=== PATIENT | female | born 2005 | race Two or more races ===

== ENCOUNTER 2023-08-31 08:57 | Outpatient (REF) | payer OTHER, SELFPAY ==
[2023-08-31 10:39] LABS: Alanine Aminotransferase 12 U/L (0-31); Albumin Level 4.7 g/dL (3.5-5.0); Alkaline Phosphatase 78 U/L (39-117); Anion Gap 14 (12-20); Aspartate Amino Transferase 14 U/L (5-31); Bilirubin Total 0.4 mg/dL (0.0-1.0); Blood Urea Nitrogen 7 mg/dL (9-16); Calcium 9.5 mg/dL (8.4-10.2); Carbon Dioxide 21 mmol/L (22-29); Chloride 108 mmol/L (96-108); Estimated Glomerular Filt Rate > 60; Glucose Random 103 mg/dL (60-115); Potassium 3.7 mmol/L (3.3-5.1); Sodium 139 mmol/L (135-145); Total Protein 7.8 g/dL (6.5-8.0)
== END 2023-08-31 08:58 | disposition home or self-care (01) ==
LOC: HO.LAB 08:57
PROVIDERS: PCP Internal Medicine; Visit Provider Internal Medicine
DX: Z13.31 Encounter for screening for depression (principal); D23.5 Other benign neoplasm of skin of trunk; R04.0 Epistaxis; D22.5 Melanocytic nevi of trunk; Z00.00 Encounter for general adult medical examination without abnormal findings
CPT/HCPCS: 11403; 36415; 80053; 85025

== ENCOUNTER 2023-08-31 09:11 | Outpatient (AMB) | payer OTHER, SELFPAY ==
[2023-08-31 09:12] VITALS: BP 129/78; PULSE 70; BMI 25.1
--- NOTE | 2023-08-31 09:12 | MHC.OFFVIS ---
Intake Vital Signs 08/31/23 09:12 Height 5 ft 4 in Weight 146 lb BMI 25.1 BP 129/78 Blood Pressure Location Rt brachial Position Sitting Pulse 70 Intake Visit Reasons: pigmented lesion right upper chest Intake Note: Patient referred for lesion on rt upper chest. First noticed 2yrs ago. C/o itch, tenderness around pigment. Patient concerned with keloid. Has developed keloids in the ear after piercing. Purchasing Manager Required: No Accompanied by: Mother Allergies acetaminophen Allergy (Mild, Verified 08/31/23 09:18) Difficulty Swallowing Medication List - Last Reconciled 08/31/23 by Niko Haines MD No Known Home Meds HPI HPI Comments History of Present Illness Details Patient presents with her mother for evaluation of a right upper outer chest skin lesion. She has had this many years time. His increasing size, become more symptomatic. She was to have removed. Chart was reviewed and patient evaluated. No such lesions elsewhere. [facility] Medical History (Updated 08/31/23 @ 09:18 by SÁNCHEZ Rasheed) Sinus abscess Social History (Updated 08/31/23 @ 09:19 by SÁNCHEZ Rasheed) Alcohol intake: never Patient Tobacco Use Status: Never used Tobacco Physical Exam Vital Signs: Last Vital Signs Pulse 70 08/31/23 09:12 BP 129/78 08/31/23 09:12 BMI result Body Mass Index 25.1 Neck Other: No cervical, periclavicular, or axillary adenopathy bilaterally. Chest Other: Approximately 3 x 2 cm solid appearing soft tissue mass in the right upper outer chest clinically suggestive of a dermatofibroma. Office Procedures Excision Details: Risks, benefits, alternatives of excision of this right anterior chest mass were reviewed the patient and included but not limited to bleeding, infection, recurrence, numbness, pain, scarring the patient wishes to proceed. All questions were answered. Consent was signed. After appropriate positioning, patient underwent 1% lidocaine and Betadine prep and a transverse bi- elliptical incision was made around the lesion in question to grossly clear margins. Specimen was sent to pathology. Wound was irrigated, secured hemostasis, and closed using running subcuticular 3-0 Vicryl suture followed by Steri-Strips and sterile dressings. Patient tolerated procedure well. [id number]-[id number]/arms/legs 2.1-3cm Procedure code (CPT) selection complete Office Meds lidocaine 1 %-epinephrine 1:100,000 injection solution Performing Provider: Niko Haines MD Performing Location: [facility] Administered by: Niko Haines MD on 08/31/23 09:52 Dose Route Admin Location Dispensed Lot Number Expiration Date [facility] Electrician Office 15 mL Infiltration 15 mL Assessment & Plan Assessment & Plan (1) Dermatofibroma of chest: Code(s): D23.5 - Other benign neoplasm of skin of trunk Plan: Patient and her mother been given local instructions including avoiding stress activities, may shower in 2 days, ice pack to the wound periodically, and follow-up will be in approximately 1 weeks time or p.r.n.. Orders: Orders AMB Excision Today D23.5 - Other benign neoplasm of skin of trunk Coding Level of Care Code New Pt Level 5 (05616) Diagnoses Dermatofibroma of chest D23.5 CPT Codes Trunk/Arms/Legs - CPT: 56891-xxiho/arms/legs 2.1-3cm ([id number])
== END 2023-08-31 09:52 | disposition home or self-care (01) ==
PROVIDERS: PCP Internal Medicine; Referring Provider Internal Medicine; Visit Provider Surgery
DX: D23.5 Other benign neoplasm of skin of trunk (principal)
CPT/HCPCS: 11403; 99204

== ENCOUNTER 2023-08-31 09:25 | Outpatient (REF) | payer OTHER, SELFPAY | END 2023-08-31 09:26 | disposition home or self-care (01) | LOC: HO.LNP 09:25 | PROVIDERS: Visit Provider Surgery | DX: D23.5 Other benign neoplasm of skin of trunk (principal) | CPT/HCPCS: 88305 ==

== ENCOUNTER 2023-09-10 10:51 | Outpatient (AMB) | payer OTHER, SELFPAY ==
[2023-09-10 11:02] VITALS: BP 121/67; PULSE 89
--- NOTE | 2023-09-10 11:02 | A.OFFVIS_ITS ---
Intake Vital Signs 09/10/23 11:02 Weight 149 lb BP 121/67 Blood Pressure Location Rt brachial Position Sitting Pulse 89 Intake Visit Reasons: s/p excision of lesion right upper chest Intake Note: Patient here s/p exc lesion on Rt upper chest. Patient reports scar opened up. Denies bleeding, pain or itch. Director Of Enterprise Architecture Required: Yes Accompanied by: Mother Allergies acetaminophen Allergy (Mild, Verified 09/10/23 11:03) Difficulty Swallowing HPI HPI Comments History of Present Illness Details Patient presents with her mother. Apparently she was quite active and has open upper incision. Otherwise she has no issues or complaints. Pathology was benign. [facility] Medical History Sinus abscess Social History Alcohol intake: never Patient Tobacco Use Status: Never used Tobacco Physical Exam Vital Signs: Last Vital Signs Pulse 89 09/10/23 11:02 BP 121/67 09/10/23 11:02 Chest Other: Wound has some mild separation the central portion incision. No evidence of any infection. Assessment & Plan Assessment & Plan (1) Dermatofibroma of chest: Code(s): D23.5 - Other benign neoplasm of skin of trunk Plan Patient has been given very strict instructions to avoid further strenuous activities for next 2-3 weeks time. Local instructions as well. Patient will follow-up p.r.n.. Coding Level of Care Code Global (71150) Diagnoses Dermatofibroma of chest D23.5
== END 2023-09-10 11:09 | disposition home or self-care (01) ==
PROVIDERS: PCP Internal Medicine; Visit Provider Surgery
DX: D23.5 Other benign neoplasm of skin of trunk (principal)
CPT/HCPCS: 99024

== ENCOUNTER → 2023-09-10 10:51 | Outpatient (BNVA) | payer OTHER, SELFPAY | PROVIDERS: PCP Internal Medicine; Visit Provider Surgery | DX: D23.5 Other benign neoplasm of skin of trunk (principal) ==

== ENCOUNTER 2024-05-20 13:54 | Outpatient (AMB) | payer OTHER, SELFPAY ==
[2024-05-20 14:13] VITALS: BP 106/71; PULSE 95; BMI 26.8
--- NOTE | 2024-05-20 14:13 | A.OFFVIS_ITS ---
Vital Signs 05/20/24 14:13 Height 5 ft 4 in Weight 156 lb BMI 26.8 BP 106/71 Blood Pressure Location Rt brachial Position Sitting Pulse 95 Intake Visit Reasons: Keloid~ chest Intake Note: Patient scheduled today's appointment c/o keloid on Rt upper chest. Patient c/o: pain, keloid enlarging. HX of dermatofibroma excised same site on 08-31-2023. Dividing Machine Operator Required: Yes Dividing Machine Operator Name: Danielle POZO Accompanied by: Self / Same As Patient Allergies acetaminophen Allergy (Mild, Verified 05/20/24 14:19) Difficulty Swallowing HPI Comments Details: Patient has a longstanding history of keloids who had an excision of anterior right upper chest wall skin lesion has developed a significant keloid. Patient states his increasing in size, become more symptomatic, and she would like to have removed. She has had other keloids elsewhere with mixed success which were treated in the [place]. [facility] Medical History Sinus abscess Surgical History (Updated 05/20/24 @ 15:10 by Niko Haines MD) History of surgical procedure (08/31/23) Social History Alcohol intake: never Patient Tobacco Use Status: Never used Tobacco Physical Exam Vital Signs: Last Vital Signs Pulse 95 05/20/24 14:13 BP 106/71 05/20/24 14:13 BMI result Body Mass Index 26.8 Chest Other: Chest breath sounds bilaterally, HS 1 in 2 Patient has a proximally 4 x 3 cm keloid involving the right anterior upper chest wall. GI Other: Abdomen is soft, benign Assessment & Plan Assessment & Plan (1) Keloid scar: Code(s): L91.0 - Hypertrophic scar Category: Surgical Plan Patient is adamant that she would like to have this removed. I discussed with her there is a very high probability that this will recur. She nonetheless wishes to have this excised and will be very careful and sedentary to allow healing to minimize the risk of keloid re-formation. We will also arrange for her post excision to see a pin machine operator for consideration of local steroid injection postprocedure. Risks, benefits, alternatives of excision of right anterior chest wall keloid/mass were reviewed with the patient included but not limited to bleeding, infection, recurrence, numbness, pain, scarring, further keloid formation and the patient wishes to proceed. All questions answered. Arrangements made for this. Coding Level of Care Code Est Pt Level 5 (70625) Diagnoses Keloid scar L91.0
== END 2024-05-20 14:56 | disposition home or self-care (01) ==
PROVIDERS: PCP Internal Medicine; Visit Provider Surgery
DX: L91.0 Hypertrophic scar (principal)
CPT/HCPCS: 99214

== ENCOUNTER → 2024-05-20 13:54 | Outpatient (BNVA) | payer OTHER, SELFPAY | PROVIDERS: PCP Internal Medicine; Visit Provider Surgery ==

== ENCOUNTER 2024-05-27 11:06 | Outpatient (AMB) | payer OTHER, SELFPAY ==
--- NOTE | 2024-05-27 11:33 | MHC.OFFVIS ---
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 She is sexually active with her boyfriend who is in [place] she sees him about every 2 months she just was within last April she had sex last round May 15 and she started her period on May 25 and it is now day 3 of her. She wants a reliable method of control but does not want to gain weight she was considering some of the many methods. [facility] Medical History Sinus abscess Surgical History History of surgical procedure (08/31/23) Social History Alcohol intake: never Patient Tobacco Use Status: Never used Tobacco Female Reproductive History Menstrual Date of last menstrual period: 05/25/24 control method: none Total pregnancies: 0 Physical Exam Vital Signs: Last Vital Signs BP 100/60 05/27/24 11:37 BMI result Body Mass Index 26.6 Assessment & Plan Assessment & Plan (1) control counseling: Code(s): Z30.09 - Encounter for other general counseling and advice on contraception Category: Medical Plan -I reviewed with the patient, all of the currently common used methods of control that are available. We reviewed how they work in the body, how they are taken, common side effects, uncommon side effects, precautions, and contraindications. -Discussed also factors that influence their effectiveness and use, and womens satisfaction with the method. -Discussed how each are used, and drawbacks of each method as well. -Methods covered included: condoms, control pills, control patches, control rings, Depo-Provera, Nexplanon, Mirena and Kyleena IUDs, and ParaGard IUDs. All of the above methods were covered in great detail including their side effect profiles and common experiences that women have and ways to mitigate against the negative experiences including attention to diet and exercise patient's with bleeding challenges that may occur her and efforts to time the initiation of the method to this start of the menstrual period. She wants to try the patch she says her friend has good experience with it reviewed side effects of all of the above methods and how to use in detail recommend that she start today which is day 3 of her menses which started on 05/25/2024 that note for 3 days so this is the last day of it discussed why it is important to start now in her cycle and not wait any longer discussed that in her case since this is Sunday every Sunday she will be changing the patch including after the patch free week she will then resume using the patch the following Sunday. We will see her in 3 months and see how she is doing she will be due for her 1st exam with Pap smear when she turns 19. Reviewed all the danger signs and what to look for what to do if she experienced any of them she denies any contraindications to any of the combination hormonal methods. Medications: New norelgestromin-ethin.estradiol 150-35 mcg/24 hr (Xulane) apply once weekly for 3 weeks of a 4-week cycle 1 patch transdermal Q7D 9 ea 3RF Coding Level of Care Code New Pt Level 3 (85956) Diagnoses control counseling Z30.09
[2024-05-27 11:37] VITALS: BP 100/60; BMI 26.6
== END 2024-05-27 12:14 | disposition home or self-care (01) ==
LOC: HO.HWSM 11:06
PROVIDERS: PCP Internal Medicine; Visit Provider Advanced Practice Midwife
DX: Z30.09 Encounter for other general counseling and advice on contraception (principal)
CPT/HCPCS: 99203

== ENCOUNTER → 2024-05-27 11:06 | Outpatient (BNVA) | payer OTHER, SELFPAY | PROVIDERS: PCP Internal Medicine; Visit Provider Advanced Practice Midwife ==

== ENCOUNTER 2024-07-17 07:27 | Day surgery (SDC) | payer OTHER, SELFPAY ==
[2024-07-15 08:36] VITALS: BMI 26.8
--- NOTE | 2024-07-16 20:57 | P.HPSUR_ITS ---
Pre-Procedural Eval Section A - 24 Hr Update-Section A only Date of Service: 07/17/24 The patient is an INPATIENT: No Changes since office visit: No Cold of Flu in the past 2 weeks, No New Medical Problems, No Changes in Medication and No Patient answered all questions Section B - Complete if H&P > 30 days Chief Complaint: Hypertrophic scar Allergies: Allergies Allergy/AdvReac Type Severity Reaction Status Date / Time acetaminophen Allergy Mild Difficulty Verified 05/27/24 11:33 Swallowing Review of Systems Sugical H&P ROS: Negative: Constitution, Cardiovascular, Respiratory, Neurological, Psychiatric, Hem-Onc, Allergic/Immunologic, Gastrointestinal, Genitourinary, Musculoskeletal, Integumentary, Endocrine and Eyes/Ea rs/Nose/Throat Exam Surgical H&P Exam: Normal: HEENT, Normal: Heart, Normal: Lungs, Normal: Extremities, Normal: Abdomen, Normal: Skin and Normal: Neurological Plan I have reviewed the history and physical and performed a pertinent physical examination on my patient. No changes have occurred unless specified. Time Spent With Patient Time: Total time managing care of this patient today ____ minutes.
[2024-07-17] VITALS (13 sets, daily range): BP systolic 105–141; BP diastolic 52–93; PULSE 82–152; RESP 16–28; TEMP 36.3–36.9; O2SAT 99–100; BMI 26.8
[2024-07-17] MEDS: Lactated Ringers 1,000 ML 100 ML IVCONT (08:17)
[2024-07-17 08:37] LABS: UPreg QC Valid YES; Urine Pregnancy NEGATIVE (NEGATIVE)
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
--- NOTE | 2024-07-17 10:12 | P.OP_ITS ---
Operative Note Operative Note Date of Service: 07/17/24 Narrative: Preoperative diagnosis: [] Anterior chest wall mass/keloid Postop diagnosis: [] The same Procedure [] wide local excision anterior chest wall mass/keloid Surgeon: [] Zaki Solar Photovoltaic Electrician: [] Jose G Type of Anesthesia: [] Mass Indication for surgery: [] Final specimen size roughly 6 x 3 cm sent to pathology for permanent specimen taken. Findings: [] Patient brought to operating room, placed on operative table supine position, after adequate level of MAC anesthesia was induced, the right anterior chest and shoulder area were prepped and draped in usual sterile fashion. Using a longitudinal by elliptical incision encompassing the mass in question to grossly clear margins, this carried down through skin, subcutaneous tissue, and undermined using Bovie. Specimen sent to pathology. Wound was irrigated and secured hemostasis after skin flaps were developed. Wound was closed in the following manner; interrupted inverted deep dermal 3-0 Vicryl sutures followed by running subcuticular 4-0 Vicryl sutures were placed. Steri-Strips and sterile dressings were applied. Wound was infiltrated the beginning at the end with 1% lidocaine/0.5% Marcaine. Sponge, needle, and instrument counts reported correct. Patient tolerated the procedure well and emerged from anesthesia stable condition. EBL minimal
--- NOTE | 2024-07-17 11:41 | HO.ANESEVENT ---
Anesthesia Event Note Date of Service: 07/17/24 Event Note: pt ready for discharge and i.v Dc/d when she devoloped sudden severe cough and severe itching and hives. immediately i.v reinserted, pt having a panic attack due to chest tightness and difficulty breathing, o2 canula 2 liters i.v benadryl 50mg i.v epinephrine 25 mcgs i.v 8mg dexamethasone i.v midazolam 1mg Albuterol nebuliser monitored in PACU pt feeling better and hives regressing, no wheeze, vitals stable. will monitor atleast one hour prior to discharge Time Spent With Patient Time: Total time managing care of this patient today ____ minutes.
== END 2024-07-17 13:14 | disposition home or self-care (01) ==
PROVIDERS: PCP Internal Medicine; Visit Provider Surgery
PROC: (CPT 11406; principal; 2024-07-17 09:40)
DX: L91.0 Hypertrophic scar (principal); L76.82 Other postprocedural complications of skin and subcutaneous tissue; Y83.8 Other surgical procedures as the cause of abnormal reaction of the patient, or of later complication, without mention of misadventure at the time of the procedure; Y92.238 Other place in hospital as the place of occurrence of the external cause; Z98.890 Other specified postprocedural states; R06.00 Dyspnea, unspecified; L50.9 Urticaria, unspecified; R07.89 Other chest pain; F41.0 Panic disorder [episodic paroxysmal anxiety]
CPT/HCPCS: 11406; 81025; 88304; 88305; 99499; J0171; J0690; J1100; J1200; J2250; J2405; J2704; J2795; J3010

== ENCOUNTER → 2024-07-17 07:27 | Outpatient (BNV) | payer OTHER, SELFPAY | PROVIDERS: PCP Internal Medicine; Visit Provider Surgery | DX: L91.0 Hypertrophic scar (principal) | CPT/HCPCS: 11406 ==

== ENCOUNTER 2025-09-02 14:59 | Outpatient (AMB) | payer OTHER, SELFPAY ==
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
[2025-09-02 15:21] VITALS: BP 116/72; PULSE 93; RESP 16; O2SAT 99; BMI 27.5
== END 2025-09-02 16:12 | disposition home or self-care (01) ==
LOC: HO.HSM 14:59
PROVIDERS: PCP Internal Medicine; Visit Provider Nurse Practitioner
DX: M54.81 Occipital neuralgia (principal)
CPT/HCPCS: 99204

== ENCOUNTER 2025-09-04 15:14 | Outpatient (AMB) | payer OTHER, SELFPAY ==
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
[2025-09-04 15:12] VITALS: BP 122/80; PULSE 97; RESP 16; O2SAT 99; BMI 27.5
== END 2025-09-04 15:45 | disposition home or self-care (01) ==
LOC: HO.HSM 15:14
PROVIDERS: PCP Internal Medicine; Visit Provider Nurse Practitioner
DX: M54.81 Occipital neuralgia (principal)
CPT/HCPCS: 64405; 99499

== ENCOUNTER → 2025-09-04 15:14 | Outpatient (BNVA) | payer OTHER, SELFPAY | PROVIDERS: PCP Internal Medicine; Visit Provider Nurse Practitioner | DX: M54.81 Occipital neuralgia (principal) | CPT/HCPCS: 64405; J0665; J1010; J2003 ==

== ENCOUNTER 2025-10-05 15:17 | Outpatient (AMB) | payer OTHER, SELFPAY ==
[2025-10-05 15:23] VITALS: BP 118/72; PULSE 101; RESP 16; O2SAT 99; BMI 27.5
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
--- OUTSIDE RECORDS SUMMARY | 2025-10-05 17:25 | XMS_ITS | Clinical Summary ---
Author Organization [address] [facility] Address [address] [place] [address] Phone Care Team Providers Care Pastry Finisher Name Role Phone Unavailable Primary Care Provider Unavailabl e Social History Tobacco Use Types Packs/Day Years Used Date Smoking Tobacco: Never Assessed Comments Unknown Sex and Gender Information Value Date Recorded Sex Assigned at Not on file Legal Sex Female 2:38 PM EST Gender Identity Not on file Sexual Orientation Not on file Plan of Treatment Health Maintenance Due Date Last Done Comments HPV Vaccines (1 - 3-dose series) 2018 Meningococcal B Vaccine (1 o f 2 - Standard) 2019 DTaP,Tdap,and Td Vaccines (1 - Tdap) 2022 Hepatitis B Vaccines (1 of 3 - 19+ 3-dose series) 2022 Annual Well Child Visit (3-2 1 years old) 10/01/2024 HIV Screening 10/01/2024 Hepatitis C Screening 10/01/2024 Social Influencers of Health Screening 10/01/2024 Depression Screening 11/26/2024 COVID-19 Vaccine (1 - 2023-2 5 season) 2025 Influenza Vaccine (#1) 2025 Gonorrhea/Chlamydia Screening 09/29/2025 09/29/2024 Cervical Cancer Screening: P ap Smear 09/29/2027 09/29/2024 RSV Immunization Adult Patie nts (1 - 1-dose 75+ series) 2078 HIB Vaccines Aged Out No longer eligi ble based on patient's age to complete this topic Hepatitis A Vaccines Aged Out No long er eligible based on patient's age to complete this topic IPV Vaccines Aged Out No longer eligi ble based on patient's age to complete this topic MMR Vaccines Aged Out No longer eligi ble based on patient's age to complete this topic Meningococcal ACWY Vaccine Aged Out N o longer eligible based on patient's age to complete this topic Pneumococcal Vaccine: Pediat rics (0 to 5 Years) and At-Risk Patients (6 to 49 Years) Aged Out No longer eligi ble based on patient's age to complete this topic RSV Immunization Patients Un itz 20 months Aged Out No longer eligible b ased on patient's age to complete this topic Varicella Vaccines Aged Out No longer eligible based on patient's age to complete this topic Procedures Procedure Name Priority Date/Time Associated Diagnosis Comments CHLAMYDIA TRACHOMATIS AND NEISSERIA GONORRHOEAE BY TMA, THINPREP Routine 09/29/2024 2:46 PM EST Encounter for screening for malignant neoplasm of cervix PAP SMEAR Routine 09/29/2024 Encounter for screening for malignant neoplasm of cervix from Last 3 Months or Most Recently Relevant to Health Maintenance Results * (ABNORMAL) Chlamydia trachomatis and neisseria gonorrhoeae by tma, thinprep (09/29/2024 2:46 PM EST) N. gonorrhoeae, RNA Probe Negative Negative LAB MICROBIOLOGY METHOD 10/07/2024 12:18 PM EST [facility] Chlamydia, RNA Probe Positive(A) Negative LAB MICROBIOLOGY METHOD 10/07/2024 12:18 PM EST [facility] Brushing Cervix uteri structure / Unknown 09/29/2024 2:46 PM EST 10/06/2024 1:53 PM EST us Shelli Mcclure MD LAB CYTOLOGY ORDERABLES Final Result [facility] [address] [place] [address], * (ABNORMAL) Pap smear (09/29/2024) Interpretation Low grade squamous intraepithelial lesion(A) 10/08/2024 4:18 PM EST [facility] General Categorization Negative 10/08/2024 4:18 PM EST [facility] Other Findings Shift in marisa suggestive of bacterial vaginosis 10/08/2024 4:18 PM EST [facility] LMP 10/08/2024 4:18 PM [facility] Comment:2 WKS AGO Specimen Adequacy Satisfactory for evaluation, endocervical/maxwell sformation zone component present 10/08/2024 4:18 PM EST [facility] Pap Methodology Liquid Based Pap Test 10/08/2024 4:18 PM EST [facility] Disclaimer The Pap test is a screening test which carries an inherent false negative rate. These test results should be correlated with the patient's clinical findings and history. This Pap test was processed using an automated screening system. Technical cytopathology services provided by [facility], at [address] [place] [id number] (CLIA # [id number]/Dusty Rodriguez MD, Parts Counterman.) 10/08/2024 4:18 PM [facility] Console Pap Interpretation Reported 10/08/2024 4:18 PM [facility] Brushing/Spatula Cervix uteri structure / Unknown 09/29/2024 09/30/2024 2:46 PM EST Shelli Mcclure MD LAB CYTOLOGY ORDERABLES Final Result [facility] [address] [place] [address], from Last 3 Months or Most Recently Relevant to Health Maintenance [place] [address] [place] [address]
--- OUTSIDE RECORDS SUMMARY | 2025-10-05 17:25 | XMS_ITS | Encounter Summary ---
Author Organization [facility] Address [address] [place] [address] Care Team Providers Care Supervisor Home Restoration Service Name Role Phone Unavailable Primary Care Provider Unavailabl e Encounter Details Date Type Department Care Team (Late st Contact Info) Description 09/30/2024 Lab Requisition [facility] - Main Lab [address] [facility] [place] [address] Shelli Mcclure MD [address] [place] [address] [place] [address] Encounter for screening for malignant neoplasm of cervix Social History Tobacco Use Types Packs/Day Years Used Date Smoking Tobacco: Never Assessed Comments Unknown Sex and Gender Information Value Date Recorded Sex Assigned at Not on file Legal Sex Female 2:38 PM EST Gender Identity Not on file Sexual Orientation Not on file documented as of this encounter Plan of Treatment Not on file documented as of this encounter Procedures Procedure Name Priority Date/Time Associated Diagnosis Comments CHLAMYDIA TRACHOMATIS AND NEISSERIA GONORRHOEAE BY TMA, THINPREP Routine 09/29/2024 2:46 PM EST Encounter for screening for malignant neoplasm of cervix PAP SMEAR Routine 09/29/2024 Encounter for screening for malignant neoplasm of cervix documented in this encounter Results * (ABNORMAL) Chlamydia trachomatis and neisseria gonorrhoeae by tma, thinprep (09/29/2024 2:46 PM EST) N. gonorrhoeae, RNA Probe Negative Negative LAB MICROBIOLOGY METHOD 10/07/2024 12:18 PM EST [facility] Chlamydia, RNA Probe Positive(A) Negative LAB MICROBIOLOGY METHOD 10/07/2024 12:18 PM EST [facility] Brushing Cervix uteri structure / Unknown 09/29/2024 2:46 PM EST 10/06/2024 1:53 PM EST us Shelli Mcclure MD LAB CYTOLOGY ORDERABLES Final Result [facility] [address] [place] [address], [place] [phone] * (ABNORMAL) Pap smear (09/29/2024) Interpretation Low grade squamous intraepithelial lesion(A) 10/08/2024 4:18 PM EST [facility] General Categorization Negative 10/08/2024 4:18 PM [facility] Other Findings Shift in marisa suggestive of bacterial vaginosis 10/08/2024 4:18 PM [facility] LMP 10/08/2024 4:18 PM [facility] Comment:2 WKS AGO Specimen Adequacy Satisfactory for evaluation, endocervical/maxwell sformation zone component present 10/08/2024 4:18 PM [facility] Pap Methodology Liquid Based Pap Test 10/08/2024 4:18 PM [facility] Disclaimer The Pap test is a screening test which carries an inherent false negative rate. These test results should be correlated with the patient's clinical findings and history. This Pap test was processed using an automated screening system. Technical cytopathology services provided by [facility], at [address] [place] [id number] (CLIA # [id number]/Dusty Rodriguez MD, Lean Specialist.) 10/08/2024 4:18 PM [facility] Console Pap Interpretation Reported 10/08/2024 4:18 PM [facility] Brushing/Spatula Cervix uteri structure / Unknown 09/29/2024 09/30/2024 2:46 PM EST us Shelli Mcclure MD LAB CYTOLOGY ORDERABLES Final Result [facility] [address] [place] [address], [place] [phone] documented in this encounter Visit Diagnoses Diagnosis Encounter for screening for malignant neoplasm of cervix documented in this encounter
== END 2025-10-05 16:08 | disposition home or self-care (01) ==
LOC: HO.HSM 15:18
PROVIDERS: PCP Internal Medicine; Visit Provider Nurse Practitioner
DX: M54.81 Occipital neuralgia (principal); G43.709 Chronic migraine without aura, not intractable, without status migrainosus
CPT/HCPCS: 99214